=== PATIENT | male | born 1940 | race Caucasian/White ===

== ENCOUNTER 2023-06-13 21:22 | Emergency (ER) | payer MEDICARE ==
[~2023-06-13] VITALS: Ht 180.3 cm; Wt 72.6 kg
[2023-06-13] MEDS ORDERED: cefTRIAXone 1,000 MG in DEXT 5% MINI-BAG PLUS 50 ML IV ONE (21:30)
[2023-06-13 21:35] VITALS: BP 132/61; PULSE 87; RESP 16; TEMP 97.6
[2023-06-13] MEDS ORDERED: cefTRIAXone 1,000 MG VIAL ONE (21:45)
[2023-06-13 22:10] VITALS: BP 132/61; PULSE 86; O2SAT 100
[2023-06-13 22:11] LABS: BASOPHILS # (AUTO) 0.1 K/uL (0.00-0.22); BASOPHILS % (AUTO) 0.7 % (0.0-2.0); EOSINOPHILS # (AUTO) 0.3 K/uL (0-0.4); EOSINOPHILS % (AUTO) 1.9 % (0.0-4.0); HEMATOCRIT 29.2 % (36-52); LYMPHOCYTES # (AUTO) 1.7 K/uL (2.0-11.5); LYMPHOCYTES % (AUTO) 12.3 % (20.5-51.1); MEAN CORPUSCULAR HEMOGLOBIN 30 pg (27-31); MEAN CORPUSCULAR HGB CONC 31 g/dL (33-37); MEAN CORPUSCULAR VOLUME 97.1 fL (80-94); MONOCYTES # (AUTO) 0.8 K/uL (0.8-1.0); MONOCYTES % (AUTO) 5.8 % (1.7-9.3); NEUTROPHILS # (AUTO) 10.9 K/uL (1.8-7.7); NEUTROPHILS % (AUTO) 79.3 % (42.2-75.2); PLATELET COUNT (AUTO) 279 K/uL (140-450); RED BLOOD CELL COUNT(AUTO) 3.01 MIL/uL (4.20-6.10); RED CELL DISTRIBUTION WIDTH 18.2 % (11.6-13.7); WHITE BLOOD COUNT (AUTO) 13.8 K/uL (4.8-10.8)
[2023-06-13 22:30] LABS: ALANINE AMINOTRANSFERASE 20 U/L (12-78); ALBUMIN 2.3 g/dL (3.4-5.0); ALKALINE PHOSPHATASE 148 U/L (50-136); ANION GAP 13.5 (8-16); ASPARTATE AMINOTRANSFERASE 38 U/L (15-37); CALCIUM 9.4 mg/dL (8.5-10.1); CARBON DIOXIDE 31.3 mmol/L (21-32); CHLORIDE 92 mmol/L (98-107); CREATININE 2.5 mg/dL (0.6-1.3); GLUCOSE 82 mg/dL (74-106); POTASSIUM 4.8 mmol/L (3.5-5.1); SODIUM SERUM 132 mmol/L (136-145); TOTAL BILIRUBIN 0.5 mg/dL (0.0-1.0); TOTAL PROTEIN, SERUM 6.6 g/dL (6.4-8.2)
[2023-06-13 22:34] LABS: LACTIC ACID 1.3 mmol/L (0.4-2.0)
[2023-06-13 22:34] LABS: APPEARANCE,URINE CLEAR (CLEAR); BILIRUBIN,URINE NEGATIVE (NEGATIVE); BLOOD, URINE 3+ (NEGATIVE); COLOR,URINE YELLOW (YELLOW); LEUKOCYTE ESTERASE ,URINE 3+ (NEGATIVE); NITRITE, URINE NEGATIVE (NEGATIVE); PROTEIN,URINE 3+ (NEGATIVE); UGLUCOSE NEGATIVE (NEGATIVE); UROBILINOGEN,URINE 0.2 EU/dL (0.2 - 1)
[2023-06-13 22:38] LABS: UREA NITROGEN, BLOOD 102 mg/dL (7-18)
[2023-06-13 22:49] LABS: WBC,URINE TOO MANY TO COUNT /HPF (0-5)
[2023-06-13 22:51] LABS: BACTERIA,URINE 10-30 (MOD) /HPF (None Seen); SQUAMOUS EPITHELIAL CELL,UR 0-3 (FEW) /LPF (0-3 (FEW))
[2023-06-13 22:52] LABS: MUCUS,URINE 1+ /LPF (None Seen)
[2023-06-14] MEDS ORDERED: MEROPENEM 1,000 MG in NACL 0.9% 50 ML IV ONE (00:10)
[2023-06-14] MEDS ORDERED: VANCOMYCIN 1,000 MG in DEXTROSE 5% 250 ML IV ONE (00:10)
[2023-06-14] MEDS ORDERED: MEROPENEM 1,000 MG VIAL IV ONE (00:19)
[2023-06-14 00:47] LABS: BLOOD GAS BASE EXCESS 5.6 mmol/L (-2.0-2.0); BLOOD GAS HCO3 27.8 mmol/L (22-26); BLOOD GAS PCO2 31.3 mmHg (35-45); BLOOD GAS PH 7.566 (7.35-7.45); BLOOD GAS PO2 132.1 mmHg (75-100)
[2023-06-14] MEDS ORDERED: VANCOMYCIN 1,000 MG VIAL ONE (00:49)
[2023-06-14 00:53] VITALS: BP 118/58; PULSE 87; O2SAT 99
[2023-06-14 04:59] VITALS: BP 131/53; PULSE 87; RESP 12; TEMP 98.2; O2SAT 100
== END 2023-06-14 04:49 | disposition short-term general hospital (02) ==
LOC: MED 21:22
DX: R36.9 Urethral discharge, unspecified (principal); N39.0 Urinary tract infection, site not specified; N34.2 Other urethritis; J96.90 Respiratory failure, unspecified, unspecified whether with hypoxia or hypercapnia; E11.22 Type 2 diabetes mellitus with diabetic chronic kidney disease; I12.0 Hypertensive chronic kidney disease with stage 5 chronic kidney disease or end stage renal disease; N18.6 End stage renal disease; E21.3 Hyperparathyroidism, unspecified; R74.8 Abnormal levels of other serum enzymes; Z99.2 Dependence on renal dialysis; Z88.8 Allergy status to other drugs, medicaments and biological substances; Z91.011 Allergy to milk products; Z95.1 Presence of aortocoronary bypass graft; Z98.890 Other specified postprocedural states; Z86.73 Personal history of transient ischemic attack (TIA), and cerebral infarction without residual deficits; Z99.11 Dependence on respirator [ventilator] status; Z20.822 Contact with and (suspected) exposure to COVID-19
CPT/HCPCS: 36415; 36600; 71045; 80053; 81001; 82803; 82948; 83605; 83880; 84484; 85025; 87040; 87070; 87086; 87426; 96365; 96366; 96367; 99291; J0696; J2185; J3370; 87186